=== PATIENT | male | born 1965 | race Caucasian/White ===

== ENCOUNTER → 2017-04-26 | Day surgery (SDC) | payer BC ==
[~2017-04-26] MED LIST: AMOXICILLIN875 MG PO; ASPIRIN81 M2 PO; CIPRO PO; FISH OIL 1,001000 MG PO; FISH OIL 1,2001 EAC1 PO; FLEXERIL10 MG PO; FLONASE16 GM; HYDROCHLOROTHIA25 MG PO; LISINOPRIL10 MG PO; LOVASTATIN20 MG PO; MEVACOR PO; NIACIN500 M2 PO; PANTOPRAZOLE SO40 MG PO; PERCOCET 51 UDTAB 5/ PO; PHENERGAN PO; PRINIVIL40 MG PO; VOLTAREN50 MG PO
--- NOTE | ~2017-04-26 | OR ---
Unit #: [id number] #: [id number] Patient: PAULA WATSON [id number] [address] [address] [id number] O MR#: [id number] NAME: PAULA WATSON ROOM: Date of Procedure: 04/26/2017 Admission Date: 04/26/2017 Surgeon: Francisco Gomez M.D. : 1965 Attending Physician: Francisco Gomez M.D. Primary Care Physician: Herberth Lopez M.D. OPERATIVE REPORT PRIMARY CARE PHYSICIAN Herberth Lopez M.D. PREOPERATIVE DIAGNOSES The patient has presented with history of left upper quadrant abdominal pain and gastroesophageal reflux. In addition, he also needs a screening colonoscopy. PROCEDURES PERFORMED Upper gastrointestinal endoscopy and biopsy as well as colonoscopy with polypectomy. POSTOPERATIVE DIAGNOSES For upper endoscopy: 1. The patient had grade 2 distal erosive esophagitis. 2. There was mild prepyloric antral erosive gastritis. 3. Rest of examination up to third part of duodenum was normal. A biopsy was obtained from the antrum for CLOtest. For colonoscopy: 1. Two sessile polyps noted, one each in the ascending colon and rectum. Both were removed using snare polypectomy. Otherwise, examination was normal up to cecum and terminal ileum. RECOMMENDATIONS 1. Pantoprazole 40 mg p.o. daily. 2. Consider repeat colonoscopy in 5 years. 3. Follow up results of polyp histology and CLOtest. The patient will be seen in the office in 3 to 4 months' time. SEDATION USED MAC. DESCRIPTION OF PROCEDURE Following detailed explanation of the potential risks and complications of an upper endoscopy and a colonoscopy, namely perforation, bleeding, and complications related to sedation, the patient was brought to GI lab and laid in the left lateral decubitus position. Lubricated tip of the Olympus video upper endoscope was passed through the bite block into the proximal esophagus under direct vision. The entire esophageal mucosa was examined. The patient was noted to have grade 2 distal erosive esophagitis with erosions in Z-line and distal esophagus. No stricture was present. The scope was then advanced into the gastric cavity and the Unit #: [id number] #: [id number] Patient: PAULA WATSON latter was insufflated. Mucosa of the fundus, body, and antrum examined and mild focal patchy erosive gastritis noted in the antral area. Pylorus was intubated with visualization of the normal duodenal bulb and second and third part of the duodenum. Upon withdrawal and retroflexion, incisura, cardia, and greater curve examined and a biopsy obtained from antrum for CLOtest. The scope was then withdrawn in the distal esophagus. The entire esophageal mucosa was examined all the way up to pharynx. No additional findings noted. The examination table was then turned by 180 degrees and the patient positioned for a colonoscopy. A digital rectal examination was performed, which was normal. Lubricated tip of the Olympus video colonoscope was inserted through the anus and advanced under direct vision. The scope was advanced and passed up to sigmoid into descending colon. No diverticula were noted in this area. The scope tip was then navigated all the way up to cecum with visualization of the ileocecal valve and the appendiceal orifice. Preparation was fair with good visualization and photodocumentation was obtained. Last few inches of the terminal ileum also visualized after intubation of the ileocecal valve and appeared normal. Successive segments of the colonic mucosa were examined upon withdrawal. A single sessile polyp was noted in the proximal ascending colon. This was about a centimeter in size. It was removed using snare cautery polypectomy. A second smaller polyp about 5 to 6 mm in size was seen in the rectum. The latter was also removed using snare polypectomy, retrieved and sent for histology. No additional polyps were noted. The patient did not have any diverticulosis nor any hemorrhoids. The scope was then withdrawn. The patient returned to the recovery area. He tolerated the procedure without any postprocedure complications. Dictated by... Fabrice Hernandez/lexi TD: 04/26/2017 12:21 JOB #: [id number] OPERATIVE REPORT Page 1 of 1 X Francisco Gomez MD X PROCEDURE OPERATIVE NOTE
== END | disposition home or self-care (01) ==
LOC: COPS 07:55
DX: Z12.11 Encounter for screening for malignant neoplasm of colon (principal); K63.5 Polyp of colon; D12.8 Benign neoplasm of rectum; K20.8 Other esophagitis; K29.00 Acute gastritis without bleeding; F17.210 Nicotine dependence, cigarettes, uncomplicated; G47.30 Sleep apnea, unspecified; Z87.442 Personal history of urinary calculi; Z79.82 Long term (current) use of aspirin; Z79.899 Other long term (current) drug therapy
CPT/HCPCS: 87077; 88305; J2250